=== PATIENT | female | born 1935 | race African-American/Black ===

== ENCOUNTER → 2017-05-06 | Outpatient (CLI) | payer MEDICARE, MEDICAID ==
[~2017-05-06] MED LIST: AMLO1TAB64 PO; ROSU10TA PO
== END | disposition home or self-care (01) ==
LOC: MAMMO 09:42
PROVIDERS: ATTEND Specialist
DX: Z12.31 Encounter for screening mammogram for malignant neoplasm of breast (principal)
CPT/HCPCS: G0202

== ENCOUNTER → 2022-01-21 | Outpatient (CLI) | payer MEDICARE, MEDICAID ==
[~2022-01-21] MED LIST changes: +CRES10 PO; -ROSU10TA PO
== END | disposition home or self-care (01) ==
LOC: US 11:16
PROVIDERS: ATTEND Internal Medicine Nephrology
DX: N28.1 Cyst of kidney, acquired (principal); N26.1 Atrophy of kidney (terminal); N18.4 Chronic kidney disease, stage 4 (severe)
CPT/HCPCS: 76770

== ENCOUNTER → 2022-07-16 | Outpatient (CLI) | payer MEDICARE, MEDICAID ==
[2022-07-16 13:14] LABS: BASOPHILS % 0.5 % (0.0-2.0); EOSINOPHILS % 1.8 % (0.0-5.0); HEMATOCRIT. 22.1 % (36.0-48.0); LYMPHOCYTES % 50.1 % (20.0-50.0); MEAN CORPUSCULAR HEMOGLOBIN 29.3 pg (28.0-32.0); MEAN CORPUSCULAR VOLUME 92.9 fL (81.0-99.0); MEAN PLATELET VOLUME 10.5 fl (7.4-10.4); MONOCYTES % 11.9 % (2.0-8.0); NEUTROPHILS % 35.7 % (40.0-76.0); PLATELET 85 x1000/uL (130-400); RED BLOOD CELL COUNT 2.38 mill/uL (4.2-5.4); RED CELL DISTRIBUTION WIDTH 14.1 % (11.6-14.6)
[2022-07-16 13:27] LABS: CHLORIDE 112 mEq/L (98-107)
[2022-07-16 13:36] LABS: HAPTOGLOBIN 56 mg/dL (30-200)
== END | disposition home or self-care (01) ==
LOC: LAB 12:12
PROVIDERS: ATTEND Internal Medicine Hematology & Oncology
DX: N18.32 Chronic kidney disease, stage 3b (principal); D63.1 Anemia in chronic kidney disease
CPT/HCPCS: 36415; 80053; 82668; 82784; 83010; 83615; 83921; 85025; 85044; 86334; 86880

== ENCOUNTER 2022-10-02 22:55 | Inpatient (IN) | payer MEDICARE, MEDICAID ==
[~2022-10-02] VITALS: Ht 152.4 cm; Wt 79.4 kg
[2022-10-03] VITALS: BP_SYST 127; BP_SYST 129; BP_DIAS 64; BP_DIAS 91
[2022-10-03] MEDS ORDERED: NITROGLYCERIN OINT 1GM/INCH UDPKT TD NR (00:45)
[2022-10-03] MEDS ORDERED: ACETAMINOPHEN 325MG TABLET PO PRN (00:45)
[2022-10-03] MEDS ORDERED: LACTULOSE 20G/30ML UDC PO PRN (00:45)
[2022-10-03] MEDS ORDERED: ONDANSETRON HCL 4MG/2ML INJ IV PRN (00:45)
[2022-10-03] MEDS ORDERED: LORAZEPAM 0.5MG TABLET PO PRN (00:45)
[2022-10-03] MEDS ORDERED: DIPHENHYDRAMINE 25MG CAPSULE PO PRN (00:45)
[2022-10-03 06:00] VITALS: BP 111/77
[2022-10-03] MEDS: HYDRALAZINE HCL 100MG TABLET PO SCH ×3 (06:00→21:36)
[2022-10-03] MEDS: AMLODIPINE 5MG TABLET PO SCH ×3 (06:00→21:35)
[2022-10-03 08:00] VITALS: BP 128/64
[2022-10-03] MEDS ORDERED: LOSARTAN POTASSIUM 25 MG TABLET PO SCH (09:00)
[2022-10-03] MEDS: POLYETHYLENE GLYCOL 3350 (17GM) 1 DOSE PACK PO SCH (09:29)
[2022-10-03] MEDS: LOSARTAN POTASSIUM 100 MG TABLET PO SCH (09:34)
[2022-10-03] MEDS: LIDOCAINE 5% PATCH TOP SCH (09:34)
[2022-10-03] MEDS: METOPROLOL TARTRATE 25MG TABLET PO SCH ×2 (09:35→21:36)
[2022-10-03] MEDS: NITROGLYCERIN OINT 1GM/INCH UDPKT TD SCH ×3 (09:36→21:37)
[2022-10-03] MEDS: TRIAMTERENE/HCTZ 37.5/25MG TABLET PO SCH (09:39)
[2022-10-03 12:00] VITALS: BP 151/56
[2022-10-03 16:00] VITALS: BP 145/68
[2022-10-03 20:00] VITALS: BP 132/47
[2022-10-03] MEDS: DOXAZOSIN MESYLATE 4MG TABLET PO SCH (21:36)
[2022-10-04] MEDS: AMLODIPINE 5MG TABLET PO SCH ×3 (06:25→21:15)
[2022-10-04] MEDS: HYDRALAZINE HCL 100MG TABLET PO SCH ×3 (06:25→21:15)
[2022-10-04] MEDS: NITROGLYCERIN OINT 1GM/INCH UDPKT TD SCH ×3 (06:26→21:16)
[2022-10-04 06:55] LABS: BASOPHILS % 0.4 % (0.0-2.0); EOSINOPHILS % 0.9 % (0.0-5.0); HEMATOCRIT. 27.6 % (36.0-48.0); HEMOGLOBIN. 8.9 g/dL (12.0-16.0); LYMPHOCYTES % 47.3 % (20.0-50.0); MEAN CORPUSCULAR HEMOGLOBIN 29.4 pg (28.0-32.0); MEAN PLATELET VOLUME 9.2 fl (7.4-10.4); MONOCYTES % 14.8 % (2.0-8.0); NEUTROPHILS % 36.6 % (40.0-76.0); PLATELET 80 x1000/uL (130-400); RED BLOOD CELL COUNT 3.03 mill/uL (4.2-5.4); RED CELL DISTRIBUTION WIDTH 15.9 % (11.6-14.6)
[2022-10-04 07:35] LABS: FERRITIN 78 ng/mL (10-291)
[2022-10-04 07:45] LABS: VITAMIN B12 SERUM > 2000.0 pg/mL (211-911)
[2022-10-04 07:55] LABS: CHLORIDE 105 mEq/L (98-107)
[2022-10-04 08:00] VITALS: BP 136/50
[2022-10-04 08:17] LABS: HEPATITIS B SURFACE ANTIGEN NEGATIVE
[2022-10-04 08:41] LABS: TOTAL IRON BINDING CAPACITY 275 ug/dL (250-450)
[2022-10-04] MEDS: METOPROLOL TARTRATE 25MG TABLET PO SCH ×2 (11:38→21:15)
[2022-10-04] MEDS: LOSARTAN POTASSIUM 100 MG TABLET PO SCH (11:38)
[2022-10-04] MEDS: TRIAMTERENE/HCTZ 37.5/25MG TABLET PO SCH (11:38)
[2022-10-04] MEDS: POLYETHYLENE GLYCOL 3350 (17GM) 1 DOSE PACK PO SCH (11:38)
[2022-10-04] MEDS: LIDOCAINE 5% PATCH TOP SCH (11:39)
[2022-10-04 20:00] VITALS: BP 140/48
[2022-10-04] MEDS: FERROUS SULFATE 325MG TABLET PO SCH ×2 (20:15→20:16)
[2022-10-04] MEDS: DOXAZOSIN MESYLATE 4MG TABLET PO SCH (21:15)
[2022-10-05] VITALS (9 sets, daily range): BP systolic 85–205; BP diastolic 42–88
[2022-10-05 03:14] LABS: CLARITY URINE CLEAR (CLEAR); COLOR URINE YELLOW (YELLOW); KETONES URINE NEGATIVE (NEGATIVE); LEUKOCYTE ESTERASE URINE 1+ (NEGATIVE); NITRITE URINE NEGATIVE (NEGATIVE); OCCULT BLOOD URINE NEGATIVE (NEGATIVE); PH URINE 5.5 (4.5-8.0); PROTEIN URINE 3+ (NEGATIVE); SPECIFIC GRAVITY URINE 1.009 (1.005-1.030); UROBILINOGEN URINE 0.2 E.U./dL (0.2-1.0)
[2022-10-05] MEDS: NITROGLYCERIN OINT 1GM/INCH UDPKT TD SCH ×2 (05:14→14:05)
[2022-10-05] MEDS: AMLODIPINE 5MG TABLET PO SCH ×2 (05:14→14:05)
[2022-10-05] MEDS: HYDRALAZINE HCL 100MG TABLET PO SCH ×2 (05:15→14:04)
[2022-10-05 06:14] LABS: HEMOGLOBIN. 9.2 g/dL (12.0-16.0); MEAN CORPUSCULAR HEMOGLOBIN 29.8 pg (28.0-32.0); MEAN CORPUSCULAR VOLUME 90.8 fL (81.0-99.0); MEAN PLATELET VOLUME 9.3 fl (7.4-10.4); PLATELET 83 x1000/uL (130-400); RED BLOOD CELL COUNT 3.09 mill/uL (4.2-5.4); RED CELL DISTRIBUTION WIDTH 15.9 % (11.6-14.6)
[2022-10-05] MEDS: TRIAMTERENE/HCTZ 37.5/25MG TABLET PO SCH (08:51)
[2022-10-05] MEDS: LIDOCAINE 5% PATCH TOP SCH (08:52)
[2022-10-05] MEDS: METOPROLOL TARTRATE 25MG TABLET PO SCH (08:53)
[2022-10-05] MEDS: LOSARTAN POTASSIUM 100 MG TABLET PO SCH (08:53)
[2022-10-05] MEDS: POLYETHYLENE GLYCOL 3350 (17GM) 1 DOSE PACK PO SCH (08:58)
[2022-10-05] MEDS ORDERED: ASCORBIC ACID 500 MG TABLET PO SCH (09:00)
[2022-10-05] MEDS ORDERED: FOLIC ACID 1MG TABLET PO SCH (09:00)
[2022-10-05] MEDS: FERROUS SULFATE 325MG TABLET PO SCH ×2 (14:04→17:37)
[2022-10-05 16:44] LABS: PLATELET ESTIMATE DECREASED
== END 2022-10-05 20:56 | disposition short-term general hospital (02) | DRG 91 ==
PROVIDERS: ADMIT Physical Medicine & Rehabilitation Spinal Cord Injury Medicine; ATTEND Family Medicine Adult Medicine
PROC: 5A1D70Z Performance of Urinary Filtration, Intermittent, Less than 6 Hours Per Day (ICD-10-PCS; principal; 2022-10-05)
DX: G72.81 Critical illness myopathy (principal); G93.41 Metabolic encephalopathy; I13.2 Hypertensive heart and chronic kidney disease with heart failure and with stage 5 chronic kidney disease, or end stage renal disease; I42.9 Cardiomyopathy, unspecified; I50.30 Unspecified diastolic (congestive) heart failure; N17.9 Acute kidney failure, unspecified; N18.5 Chronic kidney disease, stage 5; N39.0 Urinary tract infection, site not specified; G62.81 Critical illness polyneuropathy; E87.0 Hyperosmolality and hypernatremia; D61.818 Other pancytopenia; I25.10 Atherosclerotic heart disease of native coronary artery without angina pectoris; F41.9 Anxiety disorder, unspecified; F31.9 Bipolar disorder, unspecified; E78.5 Hyperlipidemia, unspecified; R13.10 Dysphagia, unspecified; E61.1 Iron deficiency; I95.9 Hypotension, unspecified; R00.1 Bradycardia, unspecified; R53.81 Other malaise; R26.9 Unspecified abnormalities of gait and mobility; D72.819 Decreased white blood cell count, unspecified; D64.9 Anemia, unspecified; B96.1 Klebsiella pneumoniae [K. pneumoniae] as the cause of diseases classified elsewhere; E53.8 Deficiency of other specified B group vitamins; Z82.49 Family history of ischemic heart disease and other diseases of the circulatory system; Z86.73 Personal history of transient ischemic attack (TIA), and cerebral infarction without residual deficits; Z91.81 History of falling; Z79.899 Other long term (current) drug therapy
CPT/HCPCS: 36415; 80048; 80053; 81003; 82140; 82607; 82728; 82746; 82962; 83036; 83540; 83550; 84134; 84443; 85025; 86705; 86709; 86803; 87340; 90935; 92523; 92610; 93970; 97110; 97112; 97116; 97162; 97166; 97530; 97535

== ENCOUNTER 2022-10-05 21:22 | Inpatient (IN) | payer MEDICARE, MEDICAID ==
[~2022-10-05] VITALS: Ht 152.4 cm; Wt 80.3 kg
[2022-10-05 21:15] VITALS: BP 137/90
[2022-10-06] VITALS (7 sets, daily range): BP systolic 138–157; BP diastolic 54–81
[2022-10-06] MEDS ORDERED: ONDANSETRON HCL 4MG/2ML INJ IV PRN (01:00)
[2022-10-06] MEDS ORDERED: LACTULOSE 20G/30ML UDC PO PRN (01:00)
[2022-10-06] MEDS ORDERED: DIPHENHYDRAMINE 25MG CAPSULE PO PRN (01:00)
[2022-10-06] MEDS ORDERED: ACETAMINOPHEN 500MG TABLET PO PRN (01:00)
[2022-10-06] MEDS ORDERED: LORATADINE 10MG TABLET PO PRN (01:00)
[2022-10-06] MEDS ORDERED: ACETAMINOPHEN 325MG TABLET PO PRN (01:45)
[2022-10-06] MEDS: HYDRALAZINE HCL 100MG TABLET PO SCH ×4 (01:51→21:32)
[2022-10-06] MEDS: AMLODIPINE 5MG TABLET PO SCH ×4 (01:52→17:49)
[2022-10-06] MEDS ORDERED: NITROGLYCERIN OINT 1GM/INCH UDPKT TD SCH (06:00)
[2022-10-06] MEDS ORDERED: METOPROLOL SUCCINATE 50MG ER TABLET PO SCH (09:00)
[2022-10-06] MEDS ORDERED: METOPROLOL TARTRATE 25MG TABLET PO SCH (09:00)
[2022-10-06] MEDS: FERROUS SULFATE 300MG/5ML UDC PO SCH ×3 (09:02→17:49)
[2022-10-06] MEDS: ASCORBIC ACID 500 MG TABLET PO SCH (09:02)
[2022-10-06] MEDS: FOLIC ACID 1MG TABLET PO SCH (09:03)
[2022-10-06] MEDS: POLYETHYLENE GLYCOL 3350 (17GM) 1 DOSE PACK PO SCH (09:03)
[2022-10-06] MEDS: TRIAMTERENE/HCTZ 37.5/25MG TABLET PO SCH (09:04)
[2022-10-06] MEDS: LIDOCAINE 5% PATCH TOP SCH (09:07)
[2022-10-06 10:03] LABS: BASOPHILS % 0.3 % (0.0-2.0); EOSINOPHILS % 0.4 % (0.0-5.0); HEMOGLOBIN. 10.1 g/dL (12.0-16.0); LYMPHOCYTES % 37.1 % (20.0-50.0); MEAN CORPUSCULAR HEMOGLOBIN 29.8 pg (28.0-32.0); MEAN CORPUSCULAR VOLUME 91.7 fL (81.0-99.0); MEAN PLATELET VOLUME 9.3 fl (7.4-10.4); MONOCYTES % 13.8 % (2.0-8.0); NEUTROPHILS % 48.4 % (40.0-76.0); PLATELET 98 x1000/uL (130-400); RED BLOOD CELL COUNT 3.39 mill/uL (4.2-5.4); RED CELL DISTRIBUTION WIDTH 15.9 % (11.6-14.6)
[2022-10-06] MEDS ORDERED: LORAZEPAM 0.5MG TABLET PO PRN (10:45)
[2022-10-06] MEDS: ISOSORBIDE MONONITRATE 60MG TABLET SR 24HR PO SCH (14:32)
[2022-10-06] MEDS: MELATONIN 3MG TABLET PO SCH (21:00)
[2022-10-06] MEDS: DOXAZOSIN MESYLATE 4MG TABLET PO SCH (21:32)
[2022-10-07] VITALS: BP 136/76
[2022-10-07 04:00] VITALS: BP 141/58
[2022-10-07] MEDS: HYDRALAZINE HCL 100MG TABLET PO SCH ×3 (06:00→21:31)
[2022-10-07 07:24] LABS: HEMATOCRIT. 25.1 % (36.0-48.0); HEMOGLOBIN. 8.3 g/dL (12.0-16.0); MEAN CORPUSCULAR HEMOGLOBIN 30.9 pg (28.0-32.0); MEAN CORPUSCULAR VOLUME 93.8 fL (81.0-99.0); MEAN PLATELET VOLUME 9.4 fl (7.4-10.4); PLATELET 361 x1000/uL (130-400); RED BLOOD CELL COUNT 2.68 mill/uL (4.2-5.4); RED CELL DISTRIBUTION WIDTH 17.1 % (11.6-14.6)
[2022-10-07 08:00] VITALS: BP 147/53
[2022-10-07] MEDS: FERROUS SULFATE 300MG/5ML UDC PO SCH ×3 (08:07→18:44)
[2022-10-07] MEDS: FOLIC ACID 1MG TABLET PO SCH (08:08)
[2022-10-07] MEDS: POLYETHYLENE GLYCOL 3350 (17GM) 1 DOSE PACK PO SCH (09:00)
[2022-10-07] MEDS: ASCORBIC ACID 500 MG TABLET PO SCH (09:00)
[2022-10-07] MEDS: ISOSORBIDE MONONITRATE 60MG TABLET SR 24HR PO SCH (09:00)
[2022-10-07] MEDS: TRIAMTERENE/HCTZ 37.5/25MG TABLET PO SCH (10:13)
[2022-10-07] MEDS: AMLODIPINE 5MG TABLET PO SCH ×3 (10:14→17:00)
[2022-10-07] MEDS: LIDOCAINE 5% PATCH TOP SCH (10:16)
[2022-10-07 11:54] VITALS: BP 137/61
[2022-10-07 12:46] LABS: PLATELET ESTIMATE NORMAL
[2022-10-07 13:52] LABS: HEPATITIS B SURFACE ANTIGEN NEGATIVE
[2022-10-07 16:00] VITALS: BP 104/40
[2022-10-07 20:00] VITALS: BP 106/47
[2022-10-07] MEDS: DOXAZOSIN MESYLATE 4MG TABLET PO SCH (21:00)
[2022-10-07] MEDS: MELATONIN 3MG TABLET PO SCH (21:30)
[2022-10-08] VITALS (19 sets, daily range): BP systolic 91–124; BP diastolic 39–68
[2022-10-08] MEDS: HYDRALAZINE HCL 100MG TABLET PO SCH ×2 (05:30→13:20)
[2022-10-08] MEDS: POLYETHYLENE GLYCOL 3350 (17GM) 1 DOSE PACK PO SCH (08:26)
[2022-10-08] MEDS: FOLIC ACID 1MG TABLET PO SCH (08:27)
[2022-10-08] MEDS: ISOSORBIDE MONONITRATE 60MG TABLET SR 24HR PO SCH (08:27)
[2022-10-08] MEDS: FERROUS SULFATE 300MG/5ML UDC PO SCH ×3 (08:27→17:21)
[2022-10-08] MEDS: ASCORBIC ACID 500 MG TABLET PO SCH (08:27)
[2022-10-08] MEDS: TRIAMTERENE/HCTZ 37.5/25MG TABLET PO SCH (08:27)
[2022-10-08] MEDS: AMLODIPINE 5MG TABLET PO SCH ×3 (08:28→17:00)
[2022-10-08] MEDS: LIDOCAINE 5% PATCH TOP SCH (08:31)
[2022-10-08 12:32] LABS: HEMATOCRIT. 26.9 % (36.0-48.0); HEMOGLOBIN. 8.8 g/dL (12.0-16.0); MEAN CORPUSCULAR VOLUME 91.3 fL (81.0-99.0); MEAN PLATELET VOLUME 8.9 fl (7.4-10.4); PLATELET 82 x1000/uL (130-400); RED BLOOD CELL COUNT 2.95 mill/uL (4.2-5.4); RED CELL DISTRIBUTION WIDTH 16.3 % (11.6-14.6)
[2022-10-08 14:14] LABS: PLATELET ESTIMATE DECREASED
[2022-10-08] MEDS ORDERED: TRIA1TAB94 MT (14:18)
[2022-10-08] MEDS ORDERED: HYDR100T26 PO (14:18)
[2022-10-08] MEDS ORDERED: AMLO5TAB88 PO (14:18)
[2022-10-08] MEDS ORDERED: DOXA4TAB2 PO (14:18)
[2022-10-08] MEDS ORDERED: FOLI-43 PO (14:18)
[2022-10-08] MEDS ORDERED: ASCO500T20 PO (14:18)
[2022-10-08] MEDS ORDERED: FE300LUD PO (14:18)
== END 2022-10-08 19:00 | disposition home health service (06) | DRG 689 ==
LOC: 5EST 21:22
PROVIDERS: ADMIT Family Medicine Adult Medicine; ATTEND Family Medicine Adult Medicine
PROC: 5A1D70Z Performance of Urinary Filtration, Intermittent, Less than 6 Hours Per Day (ICD-10-PCS; principal; 2022-10-08)
DX: N39.0 Urinary tract infection, site not specified (principal); G93.41 Metabolic encephalopathy; N18.6 End stage renal disease; I13.2 Hypertensive heart and chronic kidney disease with heart failure and with stage 5 chronic kidney disease, or end stage renal disease; G62.81 Critical illness polyneuropathy; G72.81 Critical illness myopathy; N17.9 Acute kidney failure, unspecified; E87.0 Hyperosmolality and hypernatremia; D61.818 Other pancytopenia; I50.30 Unspecified diastolic (congestive) heart failure; I43 Cardiomyopathy in diseases classified elsewhere; D63.8 Anemia in other chronic diseases classified elsewhere; I95.9 Hypotension, unspecified; I25.10 Atherosclerotic heart disease of native coronary artery without angina pectoris; I16.0 Hypertensive urgency; F41.9 Anxiety disorder, unspecified; F31.9 Bipolar disorder, unspecified; E78.5 Hyperlipidemia, unspecified; E53.8 Deficiency of other specified B group vitamins; D69.6 Thrombocytopenia, unspecified; D53.9 Nutritional anemia, unspecified; H91.10 Presbycusis, unspecified ear; B96.89 Other specified bacterial agents as the cause of diseases classified elsewhere; B96.1 Klebsiella pneumoniae [K. pneumoniae] as the cause of diseases classified elsewhere; Z99.2 Dependence on renal dialysis; Z86.73 Personal history of transient ischemic attack (TIA), and cerebral infarction without residual deficits
CPT/HCPCS: 36415; 80048; 82140; 83735; 84443; 85025; 86705; 86709; 86803; 87340; 90935; 92610; 93005; 97162

== ENCOUNTER 2022-10-19 11:28 | Inpatient (IN) | payer MEDICARE, MEDICAID ==
[2022-10-19] VITALS (9 sets, daily range): BP systolic 137–196; BP diastolic 50–78
[~2022-10-19] VITALS: Ht 165.1 cm; Wt 71.4 kg
[~2022-10-19 11:28] MED LIST changes: -AMLO1TAB64 PO; +AMLO5TAB88 PO; +ASCO500T20 PO; -CRES10 PO; +DOXA4TAB2 PO; +FE300LUD PO; +FOLI-43 PO; +HYDR100T26 PO; +TRIA1TAB94 MT
[2022-10-19] MEDS ORDERED: HALOPERIDOL LACTATE 5MG/ML VIAL IM ONE (12:15)
[2022-10-19] MEDS ORDERED: LORAZEPAM 2MG/ML CPJ IM ONE (13:00)
[2022-10-19 15:23] LABS: CHLORIDE 104 mEq/L (98-107)
[2022-10-19 15:26] LABS: BASOPHILS % 0.4 % (0.0-2.0); EOSINOPHILS % 0.1 % (0.0-5.0); HEMOGLOBIN. 10.6 g/dL (12.0-16.0); LYMPHOCYTES % 24.4 % (20.0-50.0); MEAN CORPUSCULAR HEMOGLOBIN 29.6 pg (28.0-32.0); MEAN CORPUSCULAR VOLUME 92.2 fL (81.0-99.0); MEAN PLATELET VOLUME 9.5 fl (7.4-10.4); MONOCYTES % 11.1 % (2.0-8.0); PLATELET 121 x1000/uL (130-400); RED BLOOD CELL COUNT 3.58 mill/uL (4.2-5.4); RED CELL DISTRIBUTION WIDTH 16.1 % (11.6-14.6)
[2022-10-19 15:39] LABS: ETHANOL BLOOD < 10 mg/dL
[2022-10-19 16:18] LABS: HEPATITIS B SURFACE ANTIGEN NEGATIVE
[2022-10-19 16:30] LABS: CLARITY URINE CLOUDY (CLEAR); COLOR URINE YELLOW (YELLOW); KETONES URINE NEGATIVE (NEGATIVE); LEUKOCYTE ESTERASE URINE 3+ (NEGATIVE); NITRITE URINE NEGATIVE (NEGATIVE); OCCULT BLOOD URINE TRACE (NEGATIVE); PH URINE 8.5 (4.5-8.0); PROTEIN URINE 2+ (NEGATIVE); SPECIFIC GRAVITY URINE 1.008 (1.005-1.030); UROBILINOGEN URINE 0.2 E.U./dL (0.2-1.0)
[2022-10-19 16:42] LABS: *AMPHETAMINES SCREEN URINE NEGATIVE (NEGATIVE); *BARBITURATES SCREEN URINE NEGATIVE (NEGATIVE); *BENZODIAZEPINES SCREEN URINE NEGATIVE (NEGATIVE); *COCAINE SCREEN URINE NEGATIVE (NEGATIVE); CANNABINOID URINE SCREEN NEGATIVE (NEGATIVE); METHADONE URINE SCREEN NEGATIVE (NEGATIVE); OPIATES URINE SCREEN NEGATIVE (NEGATIVE); PHENCYCLIDINE URINE SCREEN NEGATIVE (NEGATIVE)
[2022-10-19] MEDS ORDERED: CLONIDINE 0.1MG TABLET PO PRN (18:15)
[2022-10-19] MEDS ORDERED: IPRATROPIUM/ALBUTEROL 0.5-3(2.5)MG/3ML NEB HHN PRN (18:15)
[2022-10-19] MEDS ORDERED: DOCUSATE SODIUM 100MG CAPSULE PO PRN (18:15)
[2022-10-19] MEDS ORDERED: ACETAMINOPHEN 325MG TABLET PO PRN ×2 (18:15)
[2022-10-19] MEDS ORDERED: ONDANSETRON HCL 4MG/2ML INJ IV PRN (18:15)
[2022-10-20 06:15] LABS: BASOPHILS % 0.5 % (0.0-2.0); EOSINOPHILS % 0.3 % (0.0-5.0); HEMATOCRIT. 31.4 % (36.0-48.0); HEMOGLOBIN. 10.3 g/dL (12.0-16.0); MEAN CORPUSCULAR HEMOGLOBIN 29.4 pg (28.0-32.0); MEAN PLATELET VOLUME 9.5 fl (7.4-10.4); MONOCYTES % 13.6 % (2.0-8.0); NEUTROPHILS % 51.6 % (40.0-76.0); PLATELET 117 x1000/uL (130-400); RED BLOOD CELL COUNT 3.49 mill/uL (4.2-5.4); RED CELL DISTRIBUTION WIDTH 15.7 % (11.6-14.6)
[2022-10-20] MEDS: AMLODIPINE 5MG TABLET PO SCH (10:48)
[2022-10-20] MEDS: FERROUS SULFATE 325MG TABLET PO SCH ×2 (13:20→17:51)
[2022-10-20] MEDS: HYDRALAZINE HCL 100MG TABLET PO SCH ×2 (15:39→21:06)
[2022-10-20 16:00] VITALS: BP 148/66
[2022-10-20 16:19] VITALS: BP 153/72
[2022-10-20 19:56] VITALS: BP 141/57
[2022-10-20 21:42] LABS: T4 FREE 1.42 ng/dL (0.76-1.46)
[2022-10-20 22:17] LABS: VITAMIN B12 SERUM >2000 pg/mL pg/mL (211-911)
[2022-10-21] VITALS (9 sets, daily range): BP systolic 105–178; BP diastolic 40–75
[2022-10-21] MEDS: HYDRALAZINE HCL 100MG TABLET PO SCH ×3 (05:25→20:40)
[2022-10-21] MEDS: FERROUS SULFATE 325MG TABLET PO SCH ×3 (08:10→17:22)
[2022-10-21 08:29] LABS: BASOPHILS % 0.5 % (0.0-2.0); EOSINOPHILS % 0.6 % (0.0-5.0); HEMATOCRIT. 29.1 % (36.0-48.0); HEMOGLOBIN. 9.5 g/dL (12.0-16.0); LYMPHOCYTES % 39.8 % (20.0-50.0); MEAN CORPUSCULAR VOLUME 91.7 fL (81.0-99.0); MEAN PLATELET VOLUME 9.9 fl (7.4-10.4); MONOCYTES % 12.2 % (2.0-8.0); NEUTROPHILS % 46.9 % (40.0-76.0); PLATELET 114 x1000/uL (130-400); RED BLOOD CELL COUNT 3.17 mill/uL (4.2-5.4); RED CELL DISTRIBUTION WIDTH 16.1 % (11.6-14.6)
[2022-10-21] MEDS: AMLODIPINE 5MG TABLET PO SCH (09:00)
[2022-10-21] MEDS: FOLIC ACID 1MG TABLET PO SCH (09:00)
[2022-10-21] MEDS ORDERED: POTASSIUM CHLORIDE 20MEQ TABLET SR PO NR (09:15)
[2022-10-21] MEDS ORDERED: DOXAZOSIN MESYLATE 4MG TABLET PO SCH (21:00)
[2022-10-22 00:15] VITALS: BP 157/77
[2022-10-22 04:34] VITALS: BP 171/63
[2022-10-22] MEDS: HYDRALAZINE HCL 100MG TABLET PO SCH ×2 (05:05→14:14)
[2022-10-22 07:28] LABS: BASOPHILS % 0.3 % (0.0-2.0); EOSINOPHILS % 0.4 % (0.0-5.0); HEMOGLOBIN. 10.4 g/dL (12.0-16.0); LYMPHOCYTES % 41.4 % (20.0-50.0); MEAN CORPUSCULAR HEMOGLOBIN 30.3 pg (28.0-32.0); MEAN CORPUSCULAR VOLUME 90.4 fL (81.0-99.0); MEAN PLATELET VOLUME 9.6 fl (7.4-10.4); MONOCYTES % 13.5 % (2.0-8.0); NEUTROPHILS % 44.4 % (40.0-76.0); PLATELET 105 x1000/uL (130-400); RED BLOOD CELL COUNT 3.43 mill/uL (4.2-5.4); RED CELL DISTRIBUTION WIDTH 15.5 % (11.6-14.6)
[2022-10-22 08:02] VITALS: BP 184/75
[2022-10-22] MEDS: FERROUS SULFATE 325MG TABLET PO SCH ×2 (08:55→14:14)
[2022-10-22] MEDS: FOLIC ACID 1MG TABLET PO SCH (08:55)
[2022-10-22] MEDS ORDERED: AMLODIPINE 10MG TABLET PO SCH (09:00)
[2022-10-22] MEDS ORDERED: DOXAZOSIN MESYLATE 4MG TABLET PO SCH (09:00)
[2022-10-22 11:53] VITALS: BP 157/62
[2022-10-22] MEDS ORDERED: QUET25TA PO (14:44)
[2022-10-22] MEDS ORDERED: DOXA4TAB2 PO (14:44)
[2022-10-22] MEDS ORDERED: AMLO10TA80 PO (14:44)
[2022-10-22 15:44] VITALS: BP 159/60
[2022-10-22 15:47] VITALS: BP 159/60
[2022-10-22] MEDS ORDERED: QUETIAPINE FUMARATE 25MG TABLET PO SCH (21:00)
== END 2022-10-22 18:53 | disposition home health service (06) | DRG 91 ==
LOC: ER 11:28 → 7WST 14:41 → EDBEDREQ 14:46 → EDBEDREQTM 14:46
PROVIDERS: ADMIT Family Medicine Adult Medicine; ATTEND Family Medicine Adult Medicine
PROC: 5A1D70Z Performance of Urinary Filtration, Intermittent, Less than 6 Hours Per Day (ICD-10-PCS; 2022-10-19)
PROC: 4A00X4Z Measurement of Central Nervous Electrical Activity, External Approach (ICD-10-PCS; principal; 2022-10-21)
PROC: 5A1D70Z Performance of Urinary Filtration, Intermittent, Less than 6 Hours Per Day (ICD-10-PCS; 2022-10-21)
DX: G92.8 Other toxic encephalopathy (principal); N18.6 End stage renal disease; N39.0 Urinary tract infection, site not specified; F23 Brief psychotic disorder; D61.818 Other pancytopenia; I43 Cardiomyopathy in diseases classified elsewhere; I50.32 Chronic diastolic (congestive) heart failure; I13.2 Hypertensive heart and chronic kidney disease with heart failure and with stage 5 chronic kidney disease, or end stage renal disease; F31.9 Bipolar disorder, unspecified; I16.0 Hypertensive urgency; I25.10 Atherosclerotic heart disease of native coronary artery without angina pectoris; F41.9 Anxiety disorder, unspecified; K46.9 Unspecified abdominal hernia without obstruction or gangrene; K80.20 Calculus of gallbladder without cholecystitis without obstruction; M16.0 Bilateral primary osteoarthritis of hip; N28.1 Cyst of kidney, acquired; K57.30 Diverticulosis of large intestine without perforation or abscess without bleeding; E78.00 Pure hypercholesterolemia, unspecified; E11.22 Type 2 diabetes mellitus with diabetic chronic kidney disease; D63.1 Anemia in chronic kidney disease; M47.816 Spondylosis without myelopathy or radiculopathy, lumbar region; R26.9 Unspecified abnormalities of gait and mobility; Z91.15 Patient's noncompliance with renal dialysis; Z86.73 Personal history of transient ischemic attack (TIA), and cerebral infarction without residual deficits; Z90.710 Acquired absence of both cervix and uterus; Z99.2 Dependence on renal dialysis
CPT/HCPCS: 36415; 70551; 71045; 74176; 80048; 80053; 80305; 80320; 81003; 82140; 82607; 82746; 83036; 83735; 84145; 84439; 84443; 84481; 84484; 85025; 86705; 86709; 86803; 87340; 90935; 93005; 99291; J1630; G0480

== ENCOUNTER 2022-10-27 08:51 | Inpatient (IN) | payer MEDICARE, MEDICAID ==
[2022-10-27] VITALS (11 sets, daily range): BP systolic 92–131; BP diastolic 42–57
[~2022-10-27] VITALS: Ht 162.6 cm; Wt 91.7 kg
[~2022-10-27 08:51] MED LIST changes: +AMLO10TA80 PO; -AMLO5TAB88 PO; +QUET25TA PO; -TRIA1TAB94 MT
[2022-10-27 09:29] LABS: BASOPHILS % 0.2 % (0.0-2.0); EOSINOPHILS % 0.3 % (0.0-5.0); HEMATOCRIT. 28.8 % (36.0-48.0); HEMOGLOBIN. 9.5 g/dL (12.0-16.0); LYMPHOCYTES % 24.7 % (20.0-50.0); MEAN CORPUSCULAR HEMOGLOBIN 29.7 pg (28.0-32.0); MEAN CORPUSCULAR VOLUME 89.8 fL (81.0-99.0); MEAN PLATELET VOLUME 9.6 fl (7.4-10.4); MONOCYTES % 10.2 % (2.0-8.0); NEUTROPHILS % 64.6 % (40.0-76.0); PLATELET 135 x1000/uL (130-400); RED BLOOD CELL COUNT 3.21 mill/uL (4.2-5.4); RED CELL DISTRIBUTION WIDTH 15.8 % (11.6-14.6)
[2022-10-27 09:39] LABS: CHLORIDE 98 mEq/L (98-107); PROTHROMBIN TIME 10.5 sec (9.6-11.0)
[2022-10-27] MEDS: DOXAZOSIN MESYLATE 4MG TABLET PO SCH ×2 (11:00→21:00)
[2022-10-27] MEDS ORDERED: AMLODIPINE 5MG TABLET PO SCH (11:00)
[2022-10-27] MEDS: LOSARTAN POTASSIUM 50 MG TABLET PO SCH (11:23)
[2022-10-27] MEDS: QUETIAPINE FUMARATE 25MG TABLET PO SCH ×2 (13:12→21:00)
[2022-10-27] MEDS ORDERED: HYDRALAZINE HCL 25MG TABLET PO SCH (14:00)
[2022-10-27 15:19] LABS: HEPATITIS B SURFACE ANTIGEN NEGATIVE
[2022-10-27] MEDS ORDERED: HYDROCODONE/ACETAMINOPHEN 5/325MG TABLET PO PRN (15:45)
[2022-10-27] MEDS ORDERED: IPRATROPIUM/ALBUTEROL 0.5-3(2.5)MG/3ML NEB HHN PRN (15:45)
[2022-10-27] MEDS ORDERED: CLONIDINE 0.1MG TABLET PO PRN (15:45)
[2022-10-27] MEDS ORDERED: ONDANSETRON HCL 4MG/2ML INJ IV PRN (15:45)
[2022-10-27] MEDS ORDERED: ACETAMINOPHEN 325MG TABLET PO PRN ×2 (15:45)
[2022-10-27] MEDS ORDERED: NALOXONE HCL 0.4MG/ML VIAL IV PRN (15:45)
[2022-10-27] MEDS ORDERED: LORAZEPAM 0.5MG TABLET PO PRN (15:45)
[2022-10-27] MEDS ORDERED: DOCUSATE SODIUM 100MG CAPSULE PO PRN (15:45)
[2022-10-27] MEDS: HYDRALAZINE HCL 100MG TABLET PO SCH (22:00)
[2022-10-28] VITALS: BP 142/66
[2022-10-28 04:00] VITALS: BP 107/42
[2022-10-28 05:54] LABS: BASOPHILS % 0.4 % (0.0-2.0); EOSINOPHILS % 0.5 % (0.0-5.0); HEMOGLOBIN. 9.9 g/dL (12.0-16.0); MEAN CORPUSCULAR HEMOGLOBIN 29.7 pg (28.0-32.0); MEAN CORPUSCULAR VOLUME 89.8 fL (81.0-99.0); MEAN PLATELET VOLUME 9.5 fl (7.4-10.4); MONOCYTES % 10.7 % (2.0-8.0); NEUTROPHILS % 59.4 % (40.0-76.0); PLATELET 130 x1000/uL (130-400); RED BLOOD CELL COUNT 3.34 mill/uL (4.2-5.4); RED CELL DISTRIBUTION WIDTH 15.8 % (11.6-14.6)
[2022-10-28] MEDS: HYDRALAZINE HCL 100MG TABLET PO SCH ×3 (06:00→21:23)
[2022-10-28 08:05] VITALS: BP 148/90
[2022-10-28] MEDS: LOSARTAN POTASSIUM 50 MG TABLET PO SCH (09:07)
[2022-10-28] MEDS: AMLODIPINE 10MG TABLET PO SCH (09:07)
[2022-10-28] MEDS: QUETIAPINE FUMARATE 25MG TABLET PO SCH ×2 (09:07→21:23)
[2022-10-28] MEDS: DOXAZOSIN MESYLATE 4MG TABLET PO SCH ×2 (09:08→21:00)
[2022-10-28 12:00] VITALS: BP 132/62
[2022-10-28 15:50] VITALS: BP 146/50
[2022-10-28 20:00] VITALS: BP 136/59
[2022-10-28] MEDS ORDERED: EPOETIN ALFA-EPBX 4,000 UNIT/ML VIAL SUBCUT SCH ×2 (21:00)
[2022-10-29] VITALS (10 sets, daily range): BP systolic 105–148; BP diastolic 49–63
[2022-10-29] MEDS: HYDRALAZINE HCL 100MG TABLET PO SCH ×3 (07:02→21:01)
[2022-10-29] MEDS: QUETIAPINE FUMARATE 25MG TABLET PO SCH ×2 (09:11→21:00)
[2022-10-29] MEDS: LOSARTAN POTASSIUM 50 MG TABLET PO SCH (09:11)
[2022-10-29] MEDS: AMLODIPINE 10MG TABLET PO SCH (09:11)
[2022-10-29] MEDS: DOXAZOSIN MESYLATE 4MG TABLET PO SCH ×2 (09:11→21:01)
[2022-10-30] VITALS (9 sets, daily range): BP systolic 99–158; BP diastolic 36–107
[2022-10-30] MEDS: HYDRALAZINE HCL 100MG TABLET PO SCH ×2 (05:05→14:00)
[2022-10-30 05:28] LABS: BASOPHILS % 0.2 % (0.0-2.0); HEMATOCRIT. 29.4 % (36.0-48.0); HEMOGLOBIN. 9.8 g/dL (12.0-16.0); LYMPHOCYTES % 17.1 % (20.0-50.0); MEAN PLATELET VOLUME 9.7 fl (7.4-10.4); MONOCYTES % 8.9 % (2.0-8.0); NEUTROPHILS % 73.8 % (40.0-76.0); PLATELET 110 x1000/uL (130-400); RED BLOOD CELL COUNT 3.27 mill/uL (4.2-5.4); RED CELL DISTRIBUTION WIDTH 16.2 % (11.6-14.6)
[2022-10-30] MEDS: AMLODIPINE 10MG TABLET PO SCH (09:00)
[2022-10-30] MEDS: DOXAZOSIN MESYLATE 4MG TABLET PO SCH (09:00)
[2022-10-30] MEDS ORDERED: LOSARTAN POTASSIUM 100 MG TABLET PO SCH (09:00)
[2022-10-30] MEDS: QUETIAPINE FUMARATE 25MG TABLET PO SCH (09:00)
== END 2022-10-30 20:15 | disposition home health service (06) | DRG 70 ==
LOC: ER 09:03 → 7WST 10:16 → EDBEDREQTM 10:22 → EDBEDREQ 10:22
PROVIDERS: ADMIT Family Medicine Adult Medicine; ATTEND Family Medicine Adult Medicine
PROC: 5A1D70Z Performance of Urinary Filtration, Intermittent, Less than 6 Hours Per Day (ICD-10-PCS; principal; 2022-10-27)
PROC: 5A1D70Z Performance of Urinary Filtration, Intermittent, Less than 6 Hours Per Day (ICD-10-PCS; 2022-10-29)
PROC: 5A1D70Z Performance of Urinary Filtration, Intermittent, Less than 6 Hours Per Day (ICD-10-PCS; 2022-10-30)
DX: G93.41 Metabolic encephalopathy (principal); N18.6 End stage renal disease; I13.2 Hypertensive heart and chronic kidney disease with heart failure and with stage 5 chronic kidney disease, or end stage renal disease; F23 Brief psychotic disorder; N39.0 Urinary tract infection, site not specified; I43 Cardiomyopathy in diseases classified elsewhere; I50.32 Chronic diastolic (congestive) heart failure; D63.1 Anemia in chronic kidney disease; E11.22 Type 2 diabetes mellitus with diabetic chronic kidney disease; E78.00 Pure hypercholesterolemia, unspecified; F31.9 Bipolar disorder, unspecified; F41.9 Anxiety disorder, unspecified; I16.0 Hypertensive urgency; I25.10 Atherosclerotic heart disease of native coronary artery without angina pectoris; M16.0 Bilateral primary osteoarthritis of hip; N28.1 Cyst of kidney, acquired; K57.30 Diverticulosis of large intestine without perforation or abscess without bleeding; K80.20 Calculus of gallbladder without cholecystitis without obstruction; M47.816 Spondylosis without myelopathy or radiculopathy, lumbar region; K46.9 Unspecified abdominal hernia without obstruction or gangrene; M85.80 Other specified disorders of bone density and structure, unspecified site; Z91.15 Patient's noncompliance with renal dialysis; Z86.73 Personal history of transient ischemic attack (TIA), and cerebral infarction without residual deficits; Z99.2 Dependence on renal dialysis; Z90.710 Acquired absence of both cervix and uterus; Z95.828 Presence of other vascular implants and grafts; Z79.4 Long term (current) use of insulin
CPT/HCPCS: 36415; 71045; 80048; 80053; 82140; 83735; 84484; 85025; 86705; 86709; 86803; 87340; 90935; 93005; 99285; J0885

== ENCOUNTER 2022-11-06 16:39 | Emergency (ER) | payer MEDICARE, MEDICAID ==
[~2022-11-06] VITALS: Ht 167.6 cm; Wt 57.0 kg
[2022-11-06 17:52] LABS: BASOPHILS % 0.4 % (0.0-2.0); EOSINOPHILS % 0.3 % (0.0-5.0); HEMATOCRIT. 26.8 % (36.0-48.0); HEMOGLOBIN. 8.9 g/dL (12.0-16.0); LYMPHOCYTES % 22.7 % (20.0-50.0); MONOCYTES % 10.1 % (2.0-8.0); NEUTROPHILS % 66.5 % (40.0-76.0); PLATELET 104 x1000/uL (130-400); RED BLOOD CELL COUNT 2.98 mill/uL (4.2-5.4); RED CELL DISTRIBUTION WIDTH 16.6 % (11.6-14.6)
[2022-11-06 18:05] LABS: CHLORIDE 103 mEq/L (98-107)
[2022-11-06 19:09] LABS: CLARITY URINE TURBID (CLEAR); COLOR URINE YELLOW (YELLOW); KETONES URINE TRACE (NEGATIVE); LEUKOCYTE ESTERASE URINE 3+ (NEGATIVE); NITRITE URINE NEGATIVE (NEGATIVE); OCCULT BLOOD URINE NEGATIVE (NEGATIVE); PH URINE 6.5 (4.5-8.0); PROTEIN URINE 2+ (NEGATIVE); UROBILINOGEN URINE 0.2 E.U./dL (0.2-1.0)
[2022-11-06] MEDS ORDERED: AMOX1TAB16 MT (19:55)
[2022-11-06 20:00] VITALS: BP 180/67
[2022-11-06] MEDS ORDERED: NITROFURANTOIN MACROCRYSTAL 50MG CAPSULE PO NR (20:00)
[2022-11-06] MEDS ORDERED: AMOXICILLIN/POTASSIUM CLAVULANATE 875/125MG TAB PO NR (20:00)
[2022-11-06] MEDS ORDERED: NITROFURANTOIN MACROCRYSTAL 25MG CAPSULE PO ONE (20:00)
== END 2022-11-06 20:15 | disposition home or self-care (01) ==
LOC: ER 16:50
DX: N39.0 Urinary tract infection, site not specified (principal); R55 Syncope and collapse; E78.00 Pure hypercholesterolemia, unspecified; I10 Essential (primary) hypertension; Z98.890 Other specified postprocedural states
CPT/HCPCS: 36415; 71045; 80053; 81003; 84484; 85025; 87077; 87186; 93005; 99285